=== PATIENT | male | born 1970 | race Two or more races ===

== ENCOUNTER 2017-01-05 12:02 | Inpatient (IN) | payer MEDICARE, OTHER ==
--- NOTE | ~2017-01-05 | CO ---
Unit #: [id number] #: [id number] Patient: RICARDO CASTLE [id number] [address] [place], [place] [address] [id number] I MR#: [id number] NAME: RICARDO CASTLE. ROOM: 321 Age: 46 Sex: M Admission Date: 01/05/2017 : 1970 Attending Physician: Naty Thompson M.D. Primary Care Physician: [facility]. CONSULTATION REPORT REQUESTING PHYSICIAN Hospitalist. REASON FOR CONSULTATION Patient with end-stage renal disease, admitted with what appeared to be acute diverticulitis and hyperkalemia with potassium of 6.5. HISTORY OF PRESENTING ILLNESS This patient is a 46-year-old [place] gentleman with a history of hypertension, obesity, history of polycystic kidney disease, and osteoarthritis. Patient was admitted with acute onset of abdominal pain on the left side, upper and lower part of the left side of the abdomen, associated with high fever and diarrhea. Patient was diagnosed with acute diverticulitis and admitted for antibiotic treatment. Nephrology was consulted for dialysis which he underwent last night. The patient had a potassium of 6.5 which is down to 5.3, but he probably needs another session of dialysis in the morning. He felt a little bit better, but he still complained of abdominal pain on the left side. PAST MEDICAL HISTORY As per History of Presenting Illness. He also has a history of secondary hyperparathyroidism, hypertension, osteoarthritis, history of MRSA infection in the past, history of PE, history of polycystic kidney disease, and history of end-stage renal disease. FAMILY HISTORY Noncontributory. MEDICATIONS 1. Zosyn 3.75 mg IV q.12. 2. Ropinirole 0.25 mg at bedtime. 3. Fosrenol 1 g with each meal. 4. Flomax 0.4 mg daily. 5. Renal vitamin 1 tablet daily. REVIEW OF SYSTEMS As per History of Presenting Illness. PHYSICAL EXAMINATION GENERAL: He is in mild pain but in no other acute distress. VITAL SIGNS: T-max was 102.8, pulse 129, and blood pressure 94/57. HEENT: Unremarkable. NECK: Supple. No JVD. CHEST: Clear to auscultation bilaterally. Unit #: [id number] #: [id number] Patient: RICARDO CASTLE CARDIOVASCULAR: Regular rate and rhythm. No rub. ABDOMEN: Soft. Mild tenderness in the left upper and lower abdomen. Positive bowel sounds. EXTREMITIES: No peripheral edema. DIAGNOSTIC STUDIES LABORATORY: Sodium 136, potassium 5.3, chloride 103, bicarb 22, BUN 63, creatinine 15, phosphorus 5.7, and calcium 9. White cell count 19.2, hemoglobin 12.6, hematocrit 39.1, and platelets 134,000. ASSESSMENT AND PLAN 1. Patient with end-stage renal disease. Continue hemodialysis. Will dialyze again in the morning for increased potassium. 2. Diverticulitis. Continue antibiotic and mild hydration. Patient was counseled on avoiding nuts and high (1) diet. 1. Dictated by... Marquise Holloway/chris TD: 01/06/2017 21:17 JOB #: [id number] CONSULTATION REPORT Page 1 of 1 X Olesya Kamara MD X CONSULTATION REPORT
--- NOTE | ~2017-01-05 | EKG ---
PATIENT: RICARDO CASTLE UNIT #: [id number] Ventricular Rate: 114 BPM Atrial Rate: 114 BPM P-R Interval: 138 ms QRS Duration: 82 ms Q-T Interval: 318 ms QTC Calculation(Bezet): 438 ms P Valier: 28 degrees Calculated R Valier: 171 degrees Calculated T Valier: 0 degrees Diagnosis Line: Sinus tachycardia Diagnosis Line: Indeterminate axis Diagnosis Line: Inferior infarct , age undetermined Diagnosis Line: Abnormal ECG Diagnosis Line: No previous ECGs available Diagnosis Line: Confirmed by ELSIE GARCIA MD ([id number]) on Diagnosis Line: 01/07/2017 7:59:45 AM INTERPRETING MD: RADHA VELASQUEZ
--- NOTE | ~2017-01-05 | CO ---
Unit #: [id number] #: [id number] Patient: RICARDO VARNER [id number] [address] [place], [place] [address] [id number] I MR#: [id number] NAME: RICARDO VARNER. ROOM: 321 Age: 46 Sex: M Admission Date: 01/05/2017 : 1970 Attending Physician: Naty Thompson M.D. Primary Care Physician: [facility]. Requesting Physician: Ava Lorenzana M.D. CONSULTATION REPORT REASON FOR CONSULTATION Acute diverticulitis. HISTORY OF PRESENT ILLNESS Mr. Varner is a 46-year-old gentleman with a history of polycystic disease and endstage renal disease on dialysis. He started with abdominal pain in the left lower quadrant two days ago, which was moderate in intensity, associated with some chills. The pain was sharp. No radiation. There was no blood in the stool. He has had similar attack in July, but he said he did not get any treatment at that time. It was associated with some diarrhea. PAST MEDICAL HISTORY 1. Polycystic disease. 2. Endstage renal disease on hemodialysis. 3. History of pulmonary embolism. Not on any anticoagulation. 4. History of hypertension. SOCIAL HISTORY He denies any smoking, alcohol or drug abuse. FAMILY HISTORY Noncontributory. ALLERGIES No known drug allergies. HOME MEDICATIONS 1. Fosrenol. 2. Flomax. 3. Ropinirole. REVIEW OF SYSTEMS Complete 10-point review of systems was done, which is unremarkable other than as mentioned above. PHYSICAL EXAMINATION VITALS: Stable. T-max 100.6, pulse 81, respiratory rate 18, blood pressure 132/94. HEENT: Pupils are equal and reactive. Sclerae anicteric. Oral mucosa moist. NECK: No jugular venous distension. No lymphadenopathy. CHEST: Clear to auscultation bilaterally. HEART: Regular rate and rhythm. No murmurs. Unit #: [id number] #: [id number] Patient: RICARDO VARNER ABDOMEN: Mild tenderness. Minimal guarding left lower quadrant, otherwise normal. EXTREMITIES: Without clubbing, cyanosis or edema. NEUROLOGIC: Intact. SKIN: Warm and dry. DIAGNOSTIC STUDIES IMAGING: CT scan of the abdomen shows findings concerning for acute mild sigmoid diverticulitis. LABORATORY: White blood cell count 15,000. Other labs are BUN 50, creatinine 13.8, liver function normal. ASSESSMENT/PLAN 1. Patient with acute sigmoid diverticulitis, already started on Zosyn. Will continue the same. Will need oral antibiotics upon discharge. Will plan on doing a colonoscopy after six to eight weeks and once the symptoms have calmed down. 2. Endstage renal disease on dialysis. 3. History of polycystic kidney disease. Thank you, Dr. Lorenzana, for this interesting consult. Will follow along. Dictated by... Marquise Santiago/tono TD: 01/06/2017 12:14 JOB #: [id number] CONSULTATION REPORT Page 1 of 1 X Javier Michael MD X CONSULTATION REPORT
--- NOTE | ~2017-01-05 | CO ---
Unit #: [id number] #: [id number] Patient: RICARDO CASTLE [id number] [address] [place], [place] [address] [id number] MR#: [id number] NAME: RICARDO CASTLE. ROOM: 469 Age: 46 Sex: M Admission Date: 01/05/2017 : 1970 Attending Physician: Naty Thompson M.D. Primary Care Physician: [facility]. Consultation Date: 01/11/2017 CONSULTATION REPORT REASON FOR CONSULTATION Positive blood cultures. HISTORY OF PRESENT ILLNESS This is a 46-year-old male with a history of endstage renal disease who was in his normal state of health until the Tuesday prior to admission. The patient reports at that time he began with sharp abdominal pain in his left lower quadrant. The patient reports that he also had excessive amounts of diarrhea that had no blood present in it. The patient presented to the emergency room, and a CT scan was consistent for diverticulitis. The patient was initially given Zosyn and Flagyl. He was admitted to the hospital. He was found to have some leukocytosis and fever, as well. Blood cultures were done upon admission, and he had one of two positive blood cultures for Bacteroides. He, since, has been transitioned to Levaquin and Flagyl, and infectious disease was asked to evaluate for antibiotic management secondary to positive blood cultures. In discussion with the patient, he reports that his diarrhea is still present; however, it is back to its baseline. He reports he is no longer having any fever, and his pain has significantly improved. PAST MEDICAL HISTORY 1. Endstage renal disease with a dialysis access in the right upper extremity. It appears to be a fistula. The patient has a history of a dialysis port infection with MRSA in 2015. 2. Polycystic kidney disease. 3. History of PE, on chronic anticoagulation. 4. Hypertension. 5. Osteoarthritis. PAST SURGICAL HISTORY AV fistula in the right upper extremity. SOCIAL HISTORY The patient lives with his . He is from [facility]. He denies any alcohol, tobacco or IV drug abuse. ALLERGIES No known allergies. MEDICATIONS Flagyl p.o. and Levaquin p.o. for approximately 7 days total of antibiotic therapy. He was on Zosyn for the first 7 days of his admission. He got Unit #: [id number] #: [id number] Patient: RICARDO CASTLE A ceftriaxone x1 dose yesterday. For other medications, please refer to the patient's MAR. REVIEW OF SYSTEMS Negative except for as previously mentioned above. He currently denies any current fevers, chills, nausea, vomiting and improved diarrhea with no blood present. He denies any urine symptoms, and he reports that he does make some/little urine. He denies any chest pain or shortness of breath. He denies any nonhealing wounds. PHYSICAL EXAMINATION VITAL SIGNS: Temperature is 97.9 with a T max on admission on January 06 of 102.8. Pulse is 72, blood pressure 102/64, respiratory rate 18. GENERAL: This is a male in no apparent distress who is well nourished, sitting in the bed comfortably. HEENT: His pupils are equal. NECK: His neck is supple. CARDIOVASCULAR: S1, S2. Regular rate and rhythm. PULMONARY: Clear to auscultation bilaterally with no wheezes or rhonchi noted. ABDOMEN: Positive bowel sounds. Soft. Minimal tenderness in the left lower quadrant. EXTREMITIES: No clubbing, cyanosis or edema. He has a PICC line in the left upper extremity. He has a fistula in the right upper extremity. DIAGNOSTIC STUDIES LABS: BUN 72, creatinine 15.4, sodium 131, potassium 4.4, chloride 90, CO2 25, bilirubin on admission 1.9, AST 9, ALT 10, lactic acid on admission was 0.9. White blood cell count is 9.2, which is improved from admission of 15,000. Hemoglobin 11.7, hematocrit 35.1, platelets 192. Urinalysis is unremarkable. MICROBIOLOGY DATA: One of two positive blood cultures on 01/05/2017 for Bacteroides fragilis. Blood cultures from 01/10/2017 are currently pending. DIAGNOSTIC IMAGING: CT scan of the abdomen and pelvis. Please see full report for complete details. In summary, it shows acute sigmoid diverticulitis without any evidence of abscess and normal appendix. Chest film shows no acute cardiopulmonary findings. IMPRESSION This is a 46-year-old male with endstage renal disease admitted with acute sharp pain in his left lower quadrant for approximately 1 day with associated diarrhea and fever and leukocytosis. The patient was found to have Bacteroides fragilis bacteremia secondary to bacterial translocation due to weakened colon wall from excessive diarrhea. At this time the patient appears to be improving on Levaquin and Flagyl, and if repeat blood cultures continue to be negative, will recommend to continue both Levaquin and Flagyl for approximately 7 more days. The patient appears nontoxic, and he is resting in the bed comfortably. This case will be discussed in detail with Dr. Matthew Myles who will evaluate this patient today. Thank you for allowing us to participate in the care of this patient. Further recommendations to follow pending the patient's clinical course. Unit #: [id number] #: [id number] Patient: RICARDO CASTLE Dictated by... Tiara JamesonPFaizanRFaizanNFaizan for Marquise Rockwell/sharon TD: 01/11/2017 09:42 JOB #: [id number] CONSULTATION REPORT Page 1 of 1 X X CONSULTATION REPORT
--- NOTE | ~2017-01-05 | HP ---
Unit #: [id number] #: [id number] Patient: RICARDO CASTLE [id number] [facility]. [place], [place] [address] [id number] MR#: [id number] NAME: RICARDO CASTLE. ROOM: Age: 46 Sex: M Admission Date: 01/05/2017 : 1970 Attending Physician: Katarina Madrid M.D. Primary Care Physician: [facility]. HISTORY AND PHYSICAL CHIEF COMPLAINT Abdominal pain. HISTORY OF PRESENT ILLNESS The patient is a 46-year-old male with a past medical history of end-stage renal disease, on dialysis, polycystic kidney disease, pulmonary embolism, secondary hyperparathyroidism, hypertension, and osteoarthritis, who presented to the emergency department for evaluation of the above. The patient states that he was in his usual state of health until yesterday when he developed abdominal pain. He states that the pain is in the left lower abdomen. He describes it as "sharp." It has been intermittent in nature. There are no exacerbating or alleviating factors. He denies any similar pain. He has had chills but no documented fever. He denies any vomiting. He has had more than 10 bouts of nonbloody diarrhea within the past 24 hours. He states that the stool is "black." In the emergency department, pulse and blood pressure were 116 and 149/107, respectively. CT of the abdomen and pelvis showed findings concerning for sigmoid diverticulitis. He was given Zosyn and Flagyl in the emergency department, as well as morphine and Zofran. He is being admitted to [facility] for evaluation and further treatment. PAST MEDICAL HISTORY 1. Admission to [facility] June 28-2014, for infected dialysis port. He had line sepsis with MRSA bacteremia. He underwent tunneled catheter removal during that admission. 2. End-stage renal disease, on dialysis Tuesday//Tuesday, followed by Dr. Rai. 3. Polycystic kidney disease. 4. History of pulmonary embolism, previously on chronic anticoagulation. The patient states that Coumadin was discontinued about six months ago. 5. Hypertension. 6. Osteoarthritis. PAST SURGICAL HISTORY AV fistula, right upper extremity. SOCIAL HISTORY The patient lives with his . He is originally from [facility]. There is no tobacco or alcohol use. Unit #: [id number] #: [id number] Patient: RICARDO CASTLE FAMILY HISTORY Notable for his mother being . He does not know her medical problems. ALLERGIES No known allergies. HOME MEDICATIONS 1. Ropinirole 0.25 mg at bedtime. 2. Fosrenol 1000 mg with meals. 3. Flomax 0.4 mg daily. 4. Renal vitamin daily. REVIEW OF SYSTEMS A complete review of systems is negative except as indicated in the History of Present Illness. The patient denies recent antibiotics, no recent travel, and no abnormal foods. PHYSICAL EXAMINATION VITAL SIGNS: Temperature is 98.5 but did reach 100.6, pulse 116, respirations 16, blood pressure 149/107 and most recently 128/92, and oxygen saturation is 98% on room air. GENERAL: Patient is awake, alert, and in no acute distress. HEENT: Head is atraumatic. Mucous membranes are moist. NECK: Supple. Trachea is midline. CARDIOVASCULAR: Regular rate and rhythm. LUNGS: Clear to auscultation bilaterally with no increased work of breathing. ABDOMEN: Soft. He is tender to palpation in the left lower quadrant. Bowel sounds are present in all four quadrants. EXTREMITIES: Nontender with no pedal edema. Patient does have a fistula in the right upper extremity with thrill and bruit. There is no pedal edema. NEUROLOGIC: Patient is awake and alert. He follows commands. PSYCHIATRIC: Mood and affect are normal. Patient is cooperative. SKIN: Skin of examined areas is warm and dry. DIAGNOSTIC STUDIES LABORATORY: Complete blood count notable for white blood cell count of 15. INR is 1. Lactic acid 1.9. Comprehensive metabolic panel notable for potassium of 5.3, BUN and creatinine 50 and 13.8, respectively, phosphorus 5, and magnesium is 2.2. Urinalysis notable for 3+ protein, 100 glucose, and 1+ blood, IMAGING: CT of the abdomen and pelvis shows findings concerning for sigmoid diverticulitis. Chest x-ray shows no acute abnormalities. ASSESSMENT The patient is a 46-year-old male with: 1. Acute diverticulitis. The patient received Zosyn and Flagyl in the emergency department. 2. Sepsis with initial lactic acid of 1.9. 3. End-stage renal disease, on dialysis Carmen//Tuesday with last dialysis being yesterday. The patient states that he is currently on the transplant list. He is followed by Dr. Rai. 4. Hyperkalemia with potassium of 5.3. 5. History of polycystic kidney disease. 6. History of pulmonary embolism. The patient states that he was taken Unit #: [id number] #: [id number] Patient: RICARDO CASTLE off Coumadin about six months ago by Dr. Rai. 7. Secondary hyperparathyroidism. 8. Hypertension. 9. Osteoarthritis. PLAN 1. Admit to intermediate level. 2. N.p.o. except ice chips and medications. 3. Blood cultures x2. 4. Stool for ova and parasites, C. difficile, and culture and sensitivity. 5. Zosyn 3.375 grams IV q.6 hours. 6. Sepsis protocol with repeat lactic acid. 7. Consult Dr. Rai regarding end-stage renal disease and hyperkalemia. 8. Check EKG and cardiac enzymes. 9. P.r.n. morphine. 10. P.r.n. Zofran. 11. Repeat labs in the morning. 12. SCDs for DVT prophylaxis. 13. Additional workup and consultants based on above. 1. Dictated by Ava Lorenzana M.D. AW/chris TD: 01/05/2017 17:57 JOB #: [id number] HISTORY AND PHYSICAL Page 1 of 1 X Ava Lorenzana MD X HISTORY AND PHYSICAL
--- NOTE | ~2017-01-05 | CT4 ---
[facility] A Service [facility] RADIOLOGY TEXT RESULTS PATIENT: RICARDO CASTLE LOCATION: C3A 321-01 : [birth year] UNIT #: [id number] AGE: [address]: Ava Lorenzana MD SEX: M ORDER DR: [id number] [facility] [address]. [place], [place] [address] [id number] MR#: [id number] Acc #: [id number] NAME: RICARDO CASTLE. : 1970 SEX: M STUDY DATE/TIME: 01/05/2017 13:04 UNIT: [facility] ROOM: STUDY DESCRIPTION: CT Abd and Pelv Wo Cont Attending Physician: Katarina Madrid M.D. Ordering Physician: Katarina Madrid M.D. [facility] REPORT This report is preliminary unless electronic signature is present EXAM Abdomen and pelvis CT without contrast. HISTORY Left lower quadrant pain with black tarry stools beginning yesterday. Patient on dialysis. TECHNIQUE Axial images were obtained without contrast. Oral contrast was administered. This CT exam was performed with one or more of the following radiation dose reduction techniques: automatic exposure control, adjustment of mA and/or kV according to patient size, and iterative reconstruction. FINDINGS Linear scarring or atelectasis is seen at both lung bases posteriorly, right greater than left. In the abdomen, the liver, spleen, and pancreas are normal in size. Polycystic kidneys are noted bilaterally. There is no evidence of retroperitoneal adenopathy or ascites and no distended bowel loops are seen. Inflammatory changes are seen around the lower descending colon into the sigmoid associated with diverticula, consistent with diverticulitis. There is no evidence of a diverticular abscess. In the pelvis, there is no evidence of adenopathy, mass, or fluid collection. The appendix is normal. IMPRESSION Acute sigmoid diverticulitis without evidence of abscess. Normal appendix. Bilateral polycystic kidneys. [facility] A Service [facility] RADIOLOGY TEXT RESULTS PATIENT: RICARDO CASTLE LOCATION: C3A PC 321-01 : [birth year] UNIT #: [id number] AGE: [address]: Ava Lorenzana MD SEX: M ORDER DR: Dictated by... Jame Le M.D. THIS IS AN ELECTRONICALLY VERIFIED REPORT Jame Le M.D. at 01/06/2017 6:47 AM JOSEF/david TD: 01/05/2017 17:21 JOB #: [id number] MEDICAL IMAGING REPORT Page 1 of 1 COPY
--- NOTE | ~2017-01-05 | DS ---
Unit #: [id number] #: [id number] Patient: RICARDO CASTLE [id number] [place], [place] [address] [id number] MR#: [id number] NAME: RICARDO CASTLE. ROOM: 469 Age: 46 Sex: M Admission Date: 01/05/2017 : 1970 Discharge Date: 01/11/2017 Attending Physician: Naty Thompson M.D. [facility] DISCHARGE SUMMARY REASON FOR ADMISSION Abdominal pain. HISTORY OF PRESENT ILLNESS/HOSPITAL COURSE Patient is a 46-year-old male with underlying history of end-stage renal disease, on hemodialysis, polycystic kidney disease, prior history of pulmonary embolism, secondary hyperparathyroidism, hypertension, who presented secondary to abdominal pain. In the ER he underwent a CT abdomen and pelvis which revealed finings consistent with acute diverticulitis. Consultation was subsequently placed to GI services. Patient was placed on IV Levaquin as well as IV Flagyl. Through his hospital course he was gradually transitioned from a clear diet to a regular diet. His pain improved dramatically. No further acute intervention was done. One of his blood cultures came back positive for beta-lactamase positive Bacteroides fragilis. This prompted an ID consultation. They recommended initial Levaquin as well as Flagyl times additional seven days. Repeat blood cultures do not show any acute bacterial growth. At this point in time patient is clinically stable for discharge. While here he did receive his dialysis per recommendations from his nephrology team. FINAL DISCHARGE DIAGNOSES 1. Acute diverticulitis, now resolving. 2. End-stage renal disease, on dialysis, followed by Dr. Rai. 3. Prior history of polycystic kidney disease. 4. Prior history of pulmonary embolism. 5. Hypertension. 6. Osteoarthritis. DISCHARGE MEDICATIONS 1. Florinef 0.1 mg p.o. b.i.d. 2. Flomax 0.4 mg p.o. daily. 3. Requip 0.25 mg p.o. q.h.s. 4. Flagyl 500 mg p.o. t.i.d. 5. Fosrenol 1000 mg p.o. with meals. 6. Levaquin 500 mg p.o. q.48 h. x4 more doses. 7. Nephrocaps one capsule p.o. daily. DISCHARGE CONDITION Stable. Unit #: [id number] #: [id number] Patient: RICARDO CASTLE DISCHARGE DISPOSITION Home. FOLLOWUP PCP 7 to 10 days. Dictated by... Marquise Mazariegos/babita TD: 01/11/2017 17:16 JOB #: [id number] DISCHARGE SUMMARY Page 1 of 1 X Naty Thompson MD X DISCHARGE SUMMARY
--- NOTE | ~2017-01-05 | EKG ---
PATIENT: RICARDO CASTLE UNIT #: [id number] Ventricular Rate: 99 BPM Atrial Rate: 99 BPM P-R Interval: 146 ms QRS Duration: 88 ms Q-T Interval: 330 ms QTC Calculation(Bezet): 423 ms P Bangs: 31 degrees Calculated R Bangs: -46 degrees Calculated T Bangs: 11 degrees Diagnosis Line: Normal sinus rhythm Diagnosis Line: Left axis deviation Diagnosis Line: Inferior infarct , age undetermined Diagnosis Line: Abnormal ECG Diagnosis Line: Diagnosis Line: Confirmed by ELSIE GARCIA MD ([id number]) on Diagnosis Line: 01/07/2017 7:56:50 AM INTERPRETING MD: RADHA VELASQUEZ
--- NOTE | ~2017-01-05 | CR72 ---
[facility] A Service [facility] RADIOLOGY TEXT RESULTS PATIENT: RICARDO CASTLE LOCATION: [facility] 321-01 : [birth year] UNIT #: [id number] AGE: [address]: Ava Lorenzana MD SEX: M ORDER DR: [id number] [facility] [address]. [place], [place] [address] [id number] E MR#: [id number] Acc #: [id number] NAME: RICARDO CASTLE. : 1970 SEX: M STUDY DATE/TIME: 01/05/2017 12:48 UNIT: [facility] ROOM: STUDY DESCRIPTION: CR Chest Single View Portable Attending Physician: Katarina Madrid M.D. Ordering Physician: Katarina Madrid M.D. Primary Care Physician: [facility]. MEDICAL IMAGING REPORT This report is preliminary unless electronic signature is present EXAM Chest, portable, 01/05/2017, 1248 hours. CLINICAL HISTORY 46-year-old man with cough, shortness of air, and abdominal pain since yesterday. History of hypertension. COMPARISON 04/21/2016 FINDINGS Single upright portable view of the chest demonstrates normal cardiac, mediastinal, and hilar contours. The lungs are clear. There are stable calcified granulomatous changes. No pleural effusion or pneumothorax. No free air in the abdomen. IMPRESSION Stable benign calcified granulomatous changes. There are no acute cardiopulmonary findings. No free air is seen in the abdomen. Dictated by... Joana Ca M.D. THIS IS AN ELECTRONICALLY VERIFIED REPORT Joana Ca M.D. at 01/05/2017 8:32 PM PHILIPPM/david TD: 01/05/2017 17:01 JOB #: [id number] MEDICAL IMAGING REPORT [facility] A Service [facility] RADIOLOGY TEXT RESULTS PATIENT: RICARDO CASTLE LOCATION: [facility] 321-01 : [birth year] UNIT #: [id number] AGE: [address]: Ava Lorenzana MD SEX: M ORDER DR: Page 1 of 1 COPY
[~2017-01-05 12:02] MED LIST: CALCIUM ACETAT667 MG PO; COUMADIN PO; COUMADIN10 MG PO; FINASTERIDE5 M1 PO; FLOMAX0.4 M1 DOB; LORTAB 5-325 M1 EACH PO; METOPROLOL SUC100 MG PO; NORCO 10-325 TA1 TAB PO; PROCRIT SUBQ; RESTORIL15 MG PO; VANCOMYCIN500 MG/VIA IV
[2017-01-05 12:52] LABS: BASOPHIL# 0.1 X10e3 (0-0.3); BASOPHIL% 0.8 % (0-2.5); EOSINOPHIL% 0.1 % (0.0-7.0); HEMATOCRIT 42.8 % (38.0-50.0); HEMOGLOBIN 13.8 gm/dL (13.0-16.0); LYMPHOCYTE# 1.2 X10e3 (1.0-3.5); LYMPHOCYTE% 7.9 % (17.0-45.0); MEAN CELL VOLUME 90.2 FL (83-96); MEAN CORPUSCULAR HEMOGLOBIN 29.2 PG (28-34); MEAN CORPUSCULAR HGB CONC 32.3 g/dL (30-36); MEAN PLATELET VOLUME 8.6 FL (6.5-11.5); MONOCYTE# 0.9 X10e3 (0-1.0); MONOCYTE% 6.2 % (3.0-12.0); NEUTROPHIL# 12.7 X10e3 (1.5-7.1); PLATELET COUNT 153 X10e3 (140-420); RED BLOOD COUNT 4.75 X10e (3.90-5.60); RED CELL DISTRIBUTION WIDTH 14.4 % (11.0-15.5)
[2017-01-05 12:55] LABS: DIFF IND NO
[2017-01-05 13:05] LABS: PARTIAL THROMBOPLASTIN TIME 32.4 SECONDS (23.5-31.3); PROTHROMBIN TIME (PATIENT) 11.3 SECONDS (10.0-11.7)
[2017-01-05 13:15] LABS: ALBUMIN SERUM 4.3 g/dL (3.5-5.0); BILIRUBIN, DIRECT 0.2 mg/dL (0.0-0.2); BILIRUBIN,INDIRECT 0.4 mg/dL (0.0-0.9); BILIRUBIN,TOTAL 0.6 mg/dL (0.2-2.0); BUN/CREATININE RATIO 3.62; CALCIUM SERUM 9.4 mg/dL (8.4-10.2); CREATININE SERUM 13.8 mg/dL (0.6-1.4); GLOM FILT RATE Estimated 3.8 mL/min (>60); MAGNESIUM 2.2 mg/dL (1.6-3.0); POTASSIUM 5.3 mmol/L (3.5-5.1)
[2017-01-05 15:00] LABS: URINE SOURCE CLEAN CATCH
[2017-01-05 15:15] LABS: URINE APPEARANCE CLEAR; URINE BILIRUBIN NEG (NEG); URINE BLOOD 1+ (NEG); URINE COLOR YELLOW; URINE GLUCOSE 100 MG/DL (NEG); URINE KETONE NEG (NEG); URINE LEUKOCYTE ESTERASE NEG (NEG); URINE NITRATE NEG (NEG); URINE PH 8.5 (5-8); URINE PROTEIN 3+ (NEG); URINE UROBILINOGEN 0.2 MG/DL (NEG)
[2017-01-05 15:19] LABS: URBCS1 AUWI 0-2 /[HPF] (0-2); URINE BACTERIA AUWI NEG (NEGATIVE); URINE SQUAMOUS EPITHELIAL CELL NONE SEEN /[HPF]; UWBCS1 AUWI 0-2 (0-5)
[2017-01-05 15:23] LABS: CULTURE INDICATED? NO
[2017-01-05] MEDS ORDERED: FOSRENOL500 MG PO (17:09)
[2017-01-05] MEDS ORDERED: ROPINIROLE HC0.25 MG PO (17:09)
[2017-01-05] MEDS ORDERED: PATIENT'S PHARMACY (17:09)
[2017-01-05] MEDS ORDERED: RENAL VITAMIN0.8 MG PO (17:10)
[2017-01-05] MEDS ORDERED: FLOMAX0.4 M1 PO (17:10)
[2017-01-05 19:04] LABS: CK TOTAL 50 IU/L (36-174)
[2017-01-06 01:07] LABS: BASOPHIL# 0.1 X10e3 (0-0.3); BASOPHIL% 0.3 % (0-2.5); EOSINOPHIL% 0.1 % (0.0-7.0); HEMATOCRIT 39.1 % (38.0-50.0); HEMOGLOBIN 12.6 gm/dL (13.0-16.0); LYMPHOCYTE% 10.3 % (17.0-45.0); MEAN CELL VOLUME 90.2 FL (83-96); MEAN CORPUSCULAR HEMOGLOBIN 29.1 PG (28-34); MEAN CORPUSCULAR HGB CONC 32.3 g/dL (30-36); MEAN PLATELET VOLUME 8.9 FL (6.5-11.5); MONOCYTE# 1.3 X10e3 (0-1.0); MONOCYTE% 6.7 % (3.0-12.0); NEUTROPHIL# 15.9 X10e3 (1.5-7.1); NEUTROPHIL% 82.6 % (40-75); PLATELET COUNT 134 X10e3 (140-420); RED BLOOD COUNT 4.33 X10e (3.90-5.60); RED CELL DISTRIBUTION WIDTH 14.5 % (11.0-15.5); WHITE BLOOD COUNT 19.2 X10e3 (4.0-10.5)
[2017-01-06 01:08] LABS: DIFF IND YES
[2017-01-06 01:27] LABS: CK TOTAL 50 IU/L (36-174)
[2017-01-06 01:33] LABS: ALBUMIN SERUM 3.7 g/dL (3.5-5.0); BILIRUBIN,TOTAL 1.9 mg/dL (0.2-2.0); BUN/CREATININE RATIO 4.2; GLOM FILT RATE Estimated 3.4 mL/min (>60); MAGNESIUM 2.2 mg/dL (1.6-3.0); PHOSPHOROUS 5.7 mg/dL (2.5-4.6); PROTEIN TOTAL SERUM 7.5 g/dL (6.0-8.3)
[2017-01-06 01:35] LABS: POTASSIUM 6.5 mmol/L (3.5-5.1)
[2017-01-06 02:19] LABS: PLATELET ESTIMATE DECREASED (NORMAL); SMUDGE CELLS 5 /100
[2017-01-06 02:20] LABS: RBC NORMAL YES
[2017-01-07 06:45] LABS: HEMOGLOBIN 11.7 gm/dL (13.0-16.0); MEAN CELL VOLUME 89.6 FL (83-96); MEAN CORPUSCULAR HEMOGLOBIN 29.2 PG (28-34); MEAN CORPUSCULAR HGB CONC 32.6 g/dL (30-36); MEAN PLATELET VOLUME 8.8 FL (6.5-11.5); RED BLOOD COUNT 4.01 X10e (3.90-5.60); RED CELL DISTRIBUTION WIDTH 14.2 % (11.0-15.5); WHITE BLOOD COUNT 13.8 X10e3 (4.0-10.5)
[2017-01-08 05:37] LABS: HEMATOCRIT 36.5 % (38.0-50.0); HEMOGLOBIN 12.1 gm/dL (13.0-16.0); MEAN CELL VOLUME 88.9 FL (83-96); MEAN CORPUSCULAR HEMOGLOBIN 29.4 PG (28-34); MEAN CORPUSCULAR HGB CONC 33.1 g/dL (30-36); MEAN PLATELET VOLUME 9.1 FL (6.5-11.5); RED BLOOD COUNT 4.1 X10e (3.90-5.60); RED CELL DISTRIBUTION WIDTH 14.2 % (11.0-15.5); WHITE BLOOD COUNT 10.3 X10e3 (4.0-10.5)
[2017-01-08 06:15] LABS: BUN/CREATININE RATIO 3.72; CALCIUM SERUM 8.7 mg/dL (8.4-10.2); CREATININE SERUM 9.4 mg/dL (0.6-1.4); POTASSIUM 4.5 mmol/L (3.5-5.1)
[2017-01-09 03:24] LABS: HEMATOCRIT 36.3 % (38.0-50.0); HEMOGLOBIN 11.9 gm/dL (13.0-16.0); MEAN CELL VOLUME 89.5 FL (83-96); MEAN CORPUSCULAR HEMOGLOBIN 29.4 PG (28-34); MEAN CORPUSCULAR HGB CONC 32.8 g/dL (30-36); MEAN PLATELET VOLUME 8.8 FL (6.5-11.5); RED BLOOD COUNT 4.06 X10e (3.90-5.60); RED CELL DISTRIBUTION WIDTH 14.1 % (11.0-15.5); WHITE BLOOD COUNT 9.9 X10e3 (4.0-10.5)
[2017-01-09 04:07] LABS: BUN/CREATININE RATIO 4.17; CALCIUM SERUM 8.9 mg/dL (8.4-10.2); CREATININE SERUM 12.7 mg/dL (0.6-1.4); GLOM FILT RATE Estimated 4.2 mL/min (>60); POTASSIUM 4.8 mmol/L (3.5-5.1)
[2017-01-10 03:02] LABS: HEMATOCRIT 35.1 % (38.0-50.0); HEMOGLOBIN 11.7 gm/dL (13.0-16.0); MEAN CELL VOLUME 88.9 FL (83-96); MEAN CORPUSCULAR HEMOGLOBIN 29.6 PG (28-34); MEAN CORPUSCULAR HGB CONC 33.3 g/dL (30-36); MEAN PLATELET VOLUME 8.1 FL (6.5-11.5); RED BLOOD COUNT 3.95 X10e (3.90-5.60); RED CELL DISTRIBUTION WIDTH 14.3 % (11.0-15.5); WHITE BLOOD COUNT 9.2 X10e3 (4.0-10.5)
[2017-01-10 03:24] LABS: BUN/CREATININE RATIO 4.67; CALCIUM SERUM 8.4 mg/dL (8.4-10.2); CREATININE SERUM 15.4 mg/dL (0.6-1.4); GLOM FILT RATE Estimated 3.3 mL/min (>60); POTASSIUM 4.4 mmol/L (3.5-5.1)
[2017-01-11] MEDS ORDERED: FLORINEF0.1 M1 PO (15:01)
[2017-01-11] MEDS ORDERED: FLAGYL PO (15:02)
[2017-01-11] MEDS ORDERED: FOSRENOL500 MG PO (15:03)
[2017-01-11] MEDS ORDERED: LEVAQUIN PO (15:07)
[2017-01-11] MEDS ORDERED: NEPHRO-VITE RX1 EACH PO (15:08)
[2017-01-11] MEDS ORDERED: ANTACID650 MG PO (16:09)
[2017-02-23] MEDS ORDERED: NEURONTIN100 MG PO (07:44)
[2017-02-23] MEDS ORDERED: FINASTERIDE5 MG PO (07:44)
== END 2017-01-11 16:29 | disposition home or self-care (01) | DRG 871 ==
LOC: CED 12:02 → CEDOF 17:10 → C3A PCU 17:10 → CED 18:50 → CEDOF 18:50 → C3A PCU 20:00 → CEDOF 20:00 → C3A PCU 01-06 08:30 → C4C 01-08 13:06
PROVIDERS: Emergency Medicine; Family Medicine
PROC: 30233N1 Transfusion of Nonautologous Red Blood Cells into Peripheral Vein, Percutaneous Approach (ICD-10-PCS; 2017-01-06)
PROC: 05HA33Z Insertion of Infusion Device into Left Brachial Vein, Percutaneous Approach (ICD-10-PCS; principal; 2017-01-10)
DX: A41.9 Sepsis, unspecified organism (principal); N18.6 End stage renal disease; Q61.3 Polycystic kidney, unspecified; K57.32 Diverticulitis of large intestine without perforation or abscess without bleeding; I12.0 Hypertensive chronic kidney disease with stage 5 chronic kidney disease or end stage renal disease; N25.81 Secondary hyperparathyroidism of renal origin; M19.90 Unspecified osteoarthritis, unspecified site; Z86.14 Personal history of Methicillin resistant Staphylococcus aureus infection; Z86.711 Personal history of pulmonary embolism
CPT/HCPCS: 71010; 74176; 80048; 80053; 80076; 81003; 82550; 83605; 83735; 84100; 84132; 84484; 85025; 85027; 85610; 85730; 87040; 93005; 96372; 99285; J0610; J0696; J2270; J2405; J2543

== ENCOUNTER → 2017-02-23 | Day surgery (SDC) | payer MEDICARE, OTHER ==
[~2017-02-23] MED LIST changes: +ANTACID650 MG PO; +FINASTERIDE5 MG PO; +FLAGYL PO; +FLOMAX0.4 M1 PO; +FLORINEF0.1 M1 PO; +FOSRENOL500 MG PO; +LEVAQUIN PO; +NEPHRO-VITE RX1 EACH PO; +NEURONTIN100 MG PO; +PATIENT'S PHARMACY; +RENAL VITAMIN0.8 MG PO; +ROPINIROLE HC0.25 MG PO
--- NOTE | ~2017-02-23 | OR ---
Unit #: [id number] #: [id number] Patient: RICARDO CASTLE [id number] [address] [place], [place] [address] [id number] O MR#: [id number] NAME: RICARDO CASTLE. ROOM: Date of Procedure: 02/23/2017 Admission Date: 02/23/2017 Surgeon: Javier Michael M.D. : 1970 Attending Physician: Javier Michael M.D. Primary Care Physician: [facility] OPERATIVE REPORT PROCEDURE PERFORMED Colonoscopy with snare polypectomy. INDICATIONS FOR PROCEDURE The patient with significant left lower quadrant pain. History of previous diverticulitis. CT scan was abnormal swelling in the colon and already undergoing colonoscopy for evaluation. POSTOPERATIVE FINDINGS 1. Diverticulosis. 2. 5 mm polyp, rectum, snared, could not be retrieved. 3. Rest of the colon exam to cecum was normal. PLAN Given the presence of polyp, I recommend a repeat colonoscopy in 5 years. DESCRIPTION OF PROCEDURE The patient was explained of the procedure, risks, and benefits along with risks and benefits of anesthesia. He was brought to the endoscopy room. Propofol anesthesia was given. Rectal exam was done, which was normal. Colonoscope was lubricated, passed up the rectum, advanced under direct vision all the way to the cecum. Cecum was identified by ileocecal valve and appendiceal orifice. I then started to pull the scope out carefully looking. Diverticulosis noted. Polyps in the rectum noted. It was snared, could not be retrieved. I retroflexed in the rectum, internal hemorrhoids seen. The scope was gently pulled out. He tolerated it well. Dictated by... Marquise Santiago/tinana TD: 02/23/2017 14:33 JOB #: [id number] Unit #: [id number] #: [id number] Patient: RICARDO CASTLE OPERATIVE REPORT Page 1 of 1 X Javier Michael MD PROCEDURE OPERATIVE NOTE
--- NOTE | ~2017-02-23 | OR ---
Unit #: [id number] #: [id number] Patient: RICARDO CASTLE [id number] [address] [address] [id number] O MR#: [id number] NAME: RICARDO CASTLE. ROOM: Date of Procedure: 02/23/2017 Admission Date: 02/23/2017 Surgeon: Javier Michael M.D. : 1970 Attending Physician: Javier Michael M.D. Primary Care Physician: [facility]. PROCEDURE OPERATIVE NOTE PROCEDURE Colonoscopy with snare polypectomy. INDICATIONS Patient with significant left lower quadrant pain. History of (1) diverticulitis. CT scan with abnormal swelling of the colon in that area. Undergoing colonoscopy for evaluation. POSTOP FINDINGS 1. Diverticulosis. 2. 5 mm polyp (2) and snared. Could not be retrieved. 3. Rest of the colon exam to cecum was normal. PLAN Given the presence of polyp, I would recommend a repeat colonoscopy in five years. DESCRIPTION OF PROCEDURE Patient was explained the procedure risks and benefits along with risks and benefits of anesthesia. He was brought to endoscopy room. Propofol anesthesia was given. Rectal exam was done, which was normal. Colonoscope was lubricated and passed through the rectum and advanced under direct vision all the way to cecum. Cecum was identified by ileocecal valve and appendiceal orifice. (3) diverticulosis noted. Polyp in the (4) noted and was snared and could not be retrieved. I retroflexed in the rectum and internal hemorrhoids seen. Scope was gently pulled out. He tolerated it well. Dictated by... Marquise Santiago/leanne TD: 02/24/2017 10:06 JOB #: [id number] Unit #: [id number] #: [id number] Patient: RICARDO CASTLE PROCEDURE OPERATIVE NOTE Page 1 of 1 X Javier Michael MD PROCEDURE OPERATIVE NOTE
== END | disposition home or self-care (01) ==
LOC: COPS 06:43
DX: K57.90 Diverticulosis of intestine, part unspecified, without perforation or abscess without bleeding (principal); K62.1 Rectal polyp; K64.8 Other hemorrhoids; N18.9 Chronic kidney disease, unspecified; Z99.2 Dependence on renal dialysis; Z79.899 Other long term (current) drug therapy; Z87.898 Personal history of other specified conditions

== ENCOUNTER 2017-02-26 23:09 | Emergency (ER) | payer MEDICARE, OTHER ==
[~2017-02-26] VITALS: Ht 172.7 cm; Wt 90.3 kg
--- NOTE | ~2017-02-26 | EKG ---
PATIENT: RICARDO CASTLE UNIT #: [id number] Ventricular Rate: 73 BPM Atrial Rate: 73 BPM P-R Interval: 166 ms QRS Duration: 96 ms Q-T Interval: 414 ms QTC Calculation(Bezet): 456 ms P Conover: 29 degrees Calculated R Conover: -28 degrees Calculated T Conover: 15 degrees Diagnosis Line: Normal sinus rhythm Diagnosis Line: Poor R wave progression questionable lead position Diagnosis Line: or body habitus Diagnosis Line: Borderline ECG Diagnosis Line: When compared with ECG of 06-JAN-2017 11:50, Diagnosis Line: Vent. rate has decreased BY 41 BPM Diagnosis Line: Confirmed by CHAS FITZPATRICK MD ([id number]) on Diagnosis Line: 02/28/2017 4:55:20 PM INTERPRETING MD: NIDA
--- NOTE | ~2017-02-26 | CT4 ---
[facility] A Service of [facility] RADIOLOGY TEXT RESULTS PATIENT: RICARDO CASTLE LOCATION: [facility] : 70 UNIT #: [id number] AGE: [address]: GREGORIO RODRIGUEZ APRN SEX: M ORDER DR: [id number] [facility] [address] [place], [place] [address] [id number] E MR#: [id number] Acc #: [id number] NAME: RICARDO CASTLE. : 1970 SEX: M STUDY DATE/TIME: 02/27/2017 1:33 UNIT: [facility] ROOM: STUDY DESCRIPTION: CT Abd and Pelv Wo Cont Attending Physician: Gregorio Rodriguez Aprn Ordering Physician: Gregorio Rodriguez Aprn Primary Care Physician: [facility]. MEDICAL IMAGING REPORT This report is preliminary unless electronic signature is present EXAM CT abdomen and pelvis without contrast. HISTORY Abdomen pain for 4 days. Recent colonoscopy. TECHNIQUE CT abdomen and pelvis was performed without contrast. This CT exam was performed with one or more of the following radiation dose reduction techniques: automatic exposure control, adjustment of mA and/or kV according to patient size, and iterative reconstruction. FINDINGS CT ABDOMEN: Mild bronchiectasis in the posterior lower lobes bilaterally and mild linear atelectasis or scarring in the posterior lung bases, right greater than left. Severe bilateral polycystic kidney disease with multiple cysts replacing the renal parenchyma bilaterally. Several probable hemorrhagic or proteinaceous cysts in both kidneys. No hydronephrosis. The liver, gallbladder, spleen, pancreas, and adrenal glands are normal. Normal caliber abdominal aorta. No ascites. No bowel dilatation. CT PELVIS: Normal appendix. Mild stranding about the proximal sigmoid colon in the anterior left upper pelvis, has decreased compared to prior CT 01/05/2017. There is [id number] diverticulosis in the sigmoid colon and distal descending colon. Findings could be secondary to mild diverticulitis or short-segment infectious or inflammatory colitis, with interval improvement since the prior study. The small amount of fluid adjacent to the proximal sigmoid colon and in the left pelvis on the prior CT has resolved. The urinary bladder and prostate gland are unremarkable. IMPRESSION ST[facility] A Service of [facility] RADIOLOGY TEXT RESULTS PATIENT: RICARDO CASTLE LOCATION: [facility] : 70 UNIT #: [id number] AGE: [address]: GREGORIO RODRIGUEZ APRN SEX: M ORDER DR: 1. Mild dat-sigmoid stranding about the proximal sigmoid colon in the anterior left upper pelvis with interval improvement compared to 01/05/2017. Findings could be secondary to mild residual diverticulitis or less likely short-segment infectious or inflammatory colitis. No abscess. Interval resolution of a small amount of adjacent fluid in the left pelvis since the prior CT. 2. No acute findings in the remainder of the abdomen or pelvis. Normal appendix.. 3. Polycystic kidney disease. Dictated by... Vinny Babcock M.D. THIS IS AN ELECTRONICALLY VERIFIED REPORT Vinny Babcock M.D. at 02/28/2017 4:48 AM MARIALUISA/david TD: 02/27/2017 23:31 JOB #: [id number] MEDICAL IMAGING REPORT Page 1 of 1 COPY
--- NOTE | ~2017-02-26 | CR72 ---
[facility] A Service of [facility] RADIOLOGY TEXT RESULTS PATIENT: RICARDO CASTLE LOCATION: [facility] : 70 UNIT #: [id number] AGE: [address]: GREGORIO RODRIGUEZ APRN SEX: M ORDER DR: [id number] [facility] [address] [place], [place] [address] [id number] E MR#: [id number] Acc #: [id number] NAME: RICARDO CASTLE. : 1970 SEX: M STUDY DATE/TIME: 02/27/2017 1:16 UNIT: [facility] ROOM: STUDY DESCRIPTION: CR Chest Single View Portable Attending Physician: Gregorio Rodriguez Aprn Ordering Physician: Gregorio Rodriguez Aprn [facility] MED[facility] IMAGING REPORT This report is preliminary unless electronic signature is present EXAM Portable chest. HISTORY Chest pain and shortness of air today. FINDINGS Cardiac size and pulmonary vascularity are within normal limits allowing for shallow inspiration. No airspace infiltrates or effusions are identified. IMPRESSION No acute findings. Shallow inspiration. Dictated by... Vinny Babcock M.D. THIS IS AN ELECTRONICALLY VERIFIED REPORT Vinny Babcock M.D. at 02/28/2017 4:47 AM MARIALUISA/david TD: 02/27/2017 23:21 JOB #: [id number] MEDICAL IMAGING REPORT Page 1 of 1 COPY
[2017-02-27 00:40] LABS: BASOPHIL% 0.4 % (0-2.5); EOSINOPHIL# 0.2 X10e3 (0-0.7); EOSINOPHIL% 2.4 % (0.0-7.0); HEMATOCRIT 40.7 % (38.0-50.0); HEMOGLOBIN 13.7 gm/dL (13.0-16.0); LYMPHOCYTE# 2.3 X10e3 (1.0-3.5); LYMPHOCYTE% 29.3 % (17.0-45.0); MEAN CELL VOLUME 89.4 FL (83-96); MEAN CORPUSCULAR HEMOGLOBIN 30.1 PG (28-34); MEAN CORPUSCULAR HGB CONC 33.7 g/dL (30-36); MEAN PLATELET VOLUME 7.9 FL (6.5-11.5); MONOCYTE# 0.7 X10e3 (0-1.0); MONOCYTE% 8.4 % (3.0-12.0); NEUTROPHIL# 4.7 X10e3 (1.5-7.1); NEUTROPHIL% 59.5 % (40-75); PLATELET COUNT 160 X10e3 (140-420); RED BLOOD COUNT 4.55 X10e (3.90-5.60); RED CELL DISTRIBUTION WIDTH 16.7 % (11.0-15.5); WHITE BLOOD COUNT 7.9 X10e3 (4.0-10.5)
[2017-02-27 00:41] LABS: DIFF IND NO
[2017-02-27 01:09] LABS: ALBUMIN SERUM 4.2 g/dL (3.5-5.0); BILIRUBIN, DIRECT 0.1 mg/dL (0.0-0.2); BILIRUBIN,INDIRECT 0.8 mg/dL (0.0-0.9); BILIRUBIN,TOTAL 0.9 mg/dL (0.2-2.0); BUN/CREATININE RATIO 2.93; CALCIUM SERUM 8.7 mg/dL (8.4-10.2); CREATININE SERUM 10.9 mg/dL (0.6-1.4); POTASSIUM 4.2 mmol/L (3.5-5.1)
[2017-02-27 02:10] LABS: POC - CKMB <1.0 ng/mL (0.0-7.9); POC - TROPONIN <0.05 ng/mL (<=0.05)
[2017-02-27 04:27] LABS: URINE SOURCE CLEAN CATCH
[2017-02-27 04:38] LABS: URINE APPEARANCE CLEAR; URINE BILIRUBIN NEG (NEG); URINE BLOOD TRACE (NEG); URINE COLOR YELLOW; URINE GLUCOSE NEG (NEG); URINE KETONE NEG (NEG); URINE LEUKOCYTE ESTERASE TRACE (NEG); URINE NITRATE NEG (NEG); URINE PH 8.5 (5-8); URINE PROTEIN 2+ (NEG); URINE SPECIFIC GRAVITY 1.008 (1.003-1.035); URINE UROBILINOGEN 0.2 MG/DL (NEG)
[2017-02-27 04:41] LABS: CULTURE INDICATED? YES; U HYALINE CASTS AUWI 0-2 /[LPF]; URBCS1 AUWI 0-2 /[HPF] (0-2); URINE BACTERIA AUWI NEG (NEGATIVE); URINE SQUAMOUS EPITHELIAL CELL NONE SEEN /[HPF]
[2017-02-27 04:49] LABS: POC - CKMB <1.0 ng/mL (0.0-7.9); POC - TROPONIN <0.05 ng/mL (<=0.05)
== END 2017-02-27 05:43 | disposition home or self-care (01) ==
LOC: CED 23:09
PROVIDERS: Nurse Practitioner Family
DX: R07.9 Chest pain, unspecified (principal); N18.9 Chronic kidney disease, unspecified; N41.9 Inflammatory disease of prostate, unspecified; N39.0 Urinary tract infection, site not specified; Z86.711 Personal history of pulmonary embolism; Z98.890 Other specified postprocedural states
CPT/HCPCS: 71010; 74176; 80048; 80076; 81003; 82553; 83690; 84484; 85025; 87086; 93005; 99285